=== PATIENT | male | born 1930 | race Caucasian/White ===

== ENCOUNTER → 2019-09-09 | Outpatient (CLI) | payer OTHER | END | disposition home or self-care (01) | LOC: RAD 14:10 | PROVIDERS: ATTEND Nurse Practitioner Family | DX: M47.815 Spondylosis without myelopathy or radiculopathy, thoracolumbar region (principal); M47.818 Spondylosis without myelopathy or radiculopathy, sacral and sacrococcygeal region; M48.07 Spinal stenosis, lumbosacral region | CPT/HCPCS: 72148 ==